=== PATIENT | female | born 1945 | race Caucasian/White ===

== ENCOUNTER → 2020-08-24 | Outpatient (CLI) | payer OTHER ==
[~2020-08-24] MED LIST: ASA81BEC PO; BUPROPION HCL100 MG PO; CLARITIN10 MG PO; DAILY MULTIPLE1 EACH PO; MELATONIN5 M4 PO; METFORMIN HCL500 M1 PO; ROSUVASTATIN CA40 MG PO
== END ==
LOC: LAB 08:14
PROVIDERS: ATTEND Ophthalmology
DX: Z01.812 Encounter for preprocedural laboratory examination (principal); Z20.828 Contact with and (suspected) exposure to other viral communicable diseases

== ENCOUNTER 2020-08-27 07:00 | Day surgery (SDC) | payer OTHER ==
[~2020-08-27] VITALS: Ht 157.5 cm; Wt 99.3 kg
[2020-08-27 09:18] VITALS: BP 128/70
--- NOTE | 2020-08-27 15:36 | EKG ---
[facility] [place] [address] ELECTROCARDIOGRAM REPORT Name: SAGE JAIMES Room #: DEP [facility]..#: [id number] Admission: 08/27/20 Attend Phys: Juan Alberto Johnson MD Discharge: 08/27/20 Date of : 49 Report #: [id number] THIS REPORT FOR: cc: Eunice Fernandez MD, Jennifer MD Santiago, Patrick MD [facility] ~ THIS REPORT FOR: //name// [facility] Test Date: 2020-08-27 Test Time: 11:21:40 Pat Name: SAGE JAIMES Department: Room: 150 4 Gender: F Classics Professor: ANISHA : 1945 Requested By: Pamela Wakefield Order Number: [id number] MD: Lars Mendoza Measurements Intervals [place] Rate: 70 P: 57 VT: 205 QRS: 35 QRSD: 88 T: 47 QT: 397 QTc: 429 Interpretive Statements Sinus rhythm Multiple ventricular premature complexes Low voltage, precordial leads No previous ECG available for comparison Electronically Signed On 08-27-2020 15:36:01 FORMULATION TECHNICIAN by Lars Mendoza [email or web address] <ELECTRONICALLY SIGNED> By: Lasr Mendoza MD, FACC 08/27/20 1536 1121 1121 Lars Mendoza MD, [facility] /EPI
--- NOTE | 2020-08-31 06:17 | O ---
[facility] [place] [address] OPERATIVE REPORT Name: SAGE JAIMES Room #: DEP [facility].#: [id number] Admission: 08/27/20 Attend Phys: Juan Alberto Johnson MD Discharge: 08/27/20 Date of : 49 Report #: [id number] THIS REPORT FOR: cc: Eunice Fernandez MD,Eunice Johnson,Juan Alberto Oneil MD ~ CC: Anahy Johnson DATE OF SERVICE: 08/27/2020 AUTO INSPECTOR: None. PREOPERATIVE DIAGNOSIS: Unilateral left upper lid ptosis. POSTOPERATIVE DIAGNOSIS: Unilateral left upper lid ptosis. OPERATION PERFORMED: Unilateral left upper lid ptosis repair. ANESTHESIA: Local anesthesia with IV sedation. COMPLICATIONS: None. INDICATIONS FOR SURGERY: This patient has left upper lid ptosis with superior visual field loss. Visual field testing demonstrates dense superior visual defects. Retesting with the upper lid elevated shows an improvement in visual field loss of over 30% and in excess of 12 degrees. The current procedure is undertaken in order to improve the patient's visual function. Informed consent was obtained to include but not limited to the potential risks for bleeding, scarring, infection, loss of vision, failure to improve the problem, need for further surgery and need for adjustment of lid height. DESCRIPTION OF PROCEDURE: The patient was taken to the operating room, where a left upper lid crease was drawn with a skin marking pen. The incision was then made with Christian scissors and dissected down to the orbital septum. Hemostasis was achieved with a monopolar cautery as it was throughout the case. The orbital septum was then entered and the pre-aponeurotic fat identified. The levator aponeurosis was then disinserted from the anterior surface of the tarsal plate and dissected free in the avascular Jackson's muscle plane. The aponeurosis was then advanced onto the anterior surface of the tarsal plate and reattached with mattress double-arm 6-0 Novafil sutures, adjusting for height and contour. The redundant aponeurosis was then amputated. The upper lid crease was then reformed with interrupted 6-0 chromic sutures. The skin was [address] [address] OPERATIVE REPORT Name: SAGE JAIMES Room #: DEP [facility].#: [id number] Admission: 08/27/20 Attend Phys: Juan Alberto Johnson MD Discharge: 08/27/20 Date of : 49 Report #: [id number] closed with interrupted 6-0 plain gut suture. The wound was then cleaned and dressed with ophthalmic antibiotic ointment. The patient was then transported to the recovery area, having tolerated the procedure well with no anesthesia or operative complications being noted. <ELECTRONICALLY SIGNED> By: Juan Alberto Johnson MD 08/31/20 0617 [id number] [id number] Juan Alberto Johnson MD /nt
== END 2020-08-27 11:30 | disposition home or self-care (01) ==
LOC: OR → TBA 07:00 → OR 07:52
PROVIDERS: ATTEND Ophthalmology
DX: H02.412 Mechanical ptosis of left eyelid (principal); E11.9 Type 2 diabetes mellitus without complications; F32.9 Major depressive disorder, single episode, unspecified; Z98.890 Other specified postprocedural states; Z79.899 Other long term (current) drug therapy
CPT/HCPCS: 50010; 50101; 50386; 50398; 51636; 56528; 56531; 62110; 62850; 70005